=== PATIENT | male | born 1975 | race African-American/Black ===

== ENCOUNTER 2021-01-15 09:29 | Inpatient (IN) | payer OTHER ==
[2021-01-15] VITALS (8 sets, daily range): BP systolic 99–133; BP diastolic 73–81
[~2021-01-15] VITALS: Ht 185.4 cm; Wt 128.2 kg
[2021-01-15] MEDS ORDERED: IV NORMAL SALINE 1,000ML 1,000 ML IV ONE (10:15)
[2021-01-15 10:27] LABS: BASO # 0.1 x10^3/uL (0.0-0.2); BASO % 1 % (0-3); EOS % 1 % (0-3); HEMATOCRIT 40.9 % (39.0-53.0); LYMPH # 2.1 x10^3/uL (1.0-4.8); LYMPH % 25 % (24-48); MEAN CORPUSCULAR HEMOGLOBIN 30 pg (25-35); MEAN CORPUSCULAR HGB CONC 32 g/dL (31-37); MEAN CORPUSCULAR VOLUME 94 fL (79-100); MONO # 0.8 x10^3/uL (0.0-1.1); MONO % 10 % (0-9); NEUT # 5.4 x10^3uL (1.8-7.7); NEUT % 64 % (31-73); PLATELET COUNT 242 x10^3/uL (140-400); RED BLOOD COUNT 4.34 x10^6/uL (4.30-5.70); WHITE BLOOD COUNT 8.5 x10^3/uL (4.0-11.0)
--- NOTE | 2021-01-15 10:27 | EKG ---
[address] [address] Test Date: 2021-01-15 Test Time: 10:18:32 Pat Name: VALE GARCIA Department: Room: Gender: M Windows Vmware Engineer: LILIAN : 1975 Requested By: BAKARI CINTRON Order Number: [id number] Reading MD: Dean Tapia MD Measurements Intervals [place] Rate: 103 P: -90 MN: 96 QRS: 9 QRSD: 100 T: 16 QT: 270 QTc: 355 Interpretive Statements SINUS TACHYCARDIA Electronically Signed On 01-19-2021 21:47:11 TECHNOLOGY DEVELOPMENT INTERN by Dean Tapia MD
--- NOTE | 2021-01-15 10:29 | PHYS DOC ---
Past History Past Surgical History: No Surgical History Alcohol Use: Occasionally Adult General Chief Complaint Chief Complaint: NAUSEA/VOMITING/DIARRHEA HPI HPI Patient is a 45 year old male presenting with nausea and vomiting. He states he ate 3lbs of grapes last Wednesday, and began to feel nauseas the next day. He reports 4-5 episodes of clear emesis per day since. Haley beer and baking soda mixed with water help with his nauseousness, but he has been unable to eat since last Wednesday. He is a Type II diabetic, but has not taken his metformin or insulin in a week, and states his blood sugar readings have read "high". He denies any sick contacts, and is fully vaccinated against COVID-19. He denies chest pain, SOB, AKERS, diarrhea, fever, and chills. Review of Systems Review of Systems Fourteen body systems of review of systems have been reviewed. See HPI for pertinent positives and negative responses, other bowie all other systems are negative, non-pertinent or non-contributory Current Medications Current Medications Current Medications Medications (Trade) Dose Ordered Sig/Yvette Start Time Stop Time Status Last Admin Dose Admin Sodium Chloride 1,000 ml @ 1,000 mls/hr 1X ONCE 01/15/21 10:15 01/15/21 11:14 Allergies Allergies Allergies Coded Allergies Type Severity Reaction Last Updated Verified acetaminophen Allergy Unknown 01/15/21 Yes codeine Allergy Unknown 01/15/21 Yes oxycodone Allergy Unknown 01/15/21 Yes Physical Exam Physical Exam Constitutional: Well developed, well nourished, no acute distress, non-toxic appearance. HENT: Normocephalic, atraumatic, bilateral external ears normal, oropharynx dry , no oral exudates, nose normal. Eyes: PERRLA, EOMI, conjunctiva normal, no discharge. Neck: Normal range of motion, no tenderness, supple, no stridor. Cardiovascular: Heart rate tachycardic, sinus rhythm, no murmurs rubs or gallops Lungs & Thorax: Bilateral breath sounds clear to auscultation Abdomen: Bowel sounds normal, soft, no tenderness, no masses, no pulsatile masses. Nonsurgical abdomen, no peritoneal signs Skin: Warm, dry, no erythema, no rash. Back: No tenderness, no CVA tenderness. Extremities: No tenderness, no cyanosis, no clubbing, ROM intact, no edema. Neurologic: Alert and oriented X 3, grossly normal motor & sensory function, no focal deficits noted. Psychologic: Affect normal, judgement normal, mood normal. Current Patient Data Vital Signs Vital Signs Date Time Temp Pulse Resp B/P (MAP) Pulse Ox O2 Delivery O2 Flow Rate FiO2 01/15/21 09:49 97.9 119 16 133/69 (90) 100 Room Air Lab Results Laboratory Tests Test 01/15/21 10:02 01/15/21 11:09 01/15/21 11:11 01/15/21 13:06 White Blood Count 8.5 x10^3/uL Red Blood Count 4.34 x10^6/uL Hemoglobin 13.0 g/dL Hematocrit 40.9 % Mean Corpuscular Volume 94 fL Mean Corpuscular Hemoglobin 30 pg Mean Corpuscular Hemoglobin Concent 32 g/dL Red Cell Distribution Width 14.0 % Platelet Count 242 x10^3/uL Neutrophils (%) (Auto) 64 % Lymphocytes (%) (Auto) 25 % Monocytes (%) (Auto) 10 % Eosinophils (%) (Auto) 1 % Basophils (%) (Auto) 1 % Neutrophils # (Auto) 5.4 x10^3uL Lymphocytes # (Auto) 2.1 x10^3/uL Monocytes # (Auto) 0.8 x10^3/uL Eosinophils # (Auto) 0.0 x10^3/uL Basophils # (Auto) 0.1 x10^3/uL Bedside Venous pH 7.25 Bedside Venous pCO2 27 mmHg Bedside Venous pO2 41 mmHg Venous Blood HCO3 12 mmol/L POC Venous O2 Saturation (Jenny) 71 % Bedside FiO2 21 Sodium Level 130 mmol/L Potassium Level 3.7 mmol/L Chloride Level 92 mmol/L Carbon Dioxide Level 13 mmol/L Anion Gap 25 Blood Urea Nitrogen 12 mg/dL Creatinine 2.0 mg/dL Estimated GFR (Cockcroft-Gault) 43.9 Glucose Level 856 mg/dL Calcium Level 9.9 mg/dL Troponin I High Sensitivity 18 ng/L Acetone Level Sm pos SARS-CoV-2 Antigen (Rapid) Negative Urine Collection Type Unknown Urine Color Straw Urine Clarity Clear Urine pH 5.5 Urine Specific [place] <=1.005 Urine Protein Neg Urine Glucose (UA) >=1000 mg/dL Urine Ketones (Stick) 80 mg/dL Urine Blood Trace Urine Nitrite Neg Urine Bilirubin Small Urine Urobilinogen Dipstick 0.2 mg/dL Urine Leukocyte Esterase Neg Urine RBC Rare /HPF Urine WBC 0 /HPF Urine Squamous Epithelial Cells Occ /LPF Urine Bacteria 0 /HPF Glucose (Fingerstick) 242 mg/dL Test 01/15/21 15:21 Glucose (Fingerstick) 166 mg/dL Current Medications Medications (Trade) Dose Ordered Sig/Yvette Route PRN Reason Start Time Stop Time Status Last Admin Dose Admin Sodium Chloride 1,000 ml @ 1,000 mls/hr 1X ONCE IV 01/15/21 10:15 01/15/21 11:14 DC 01/15/21 10:23 Ondansetron HCl (Zofran) 4 mg 1X ONCE IVP 01/15/21 10:30 01/15/21 10:36 DC 01/15/21 10:30 Potassium Chloride/Sodium Chloride 1,000 ml @ 75 mls/hr 1X ONCE IV 01/15/21 11:30 01/16/21 00:49 01/15/21 11:30 Insulin Human Regular (HumuLIN R VIAL) 13 unit 1X ONCE IV 01/15/21 11:30 01/15/21 11:35 DC 01/15/21 11:51 Insulin Human Regular 100 unit/ Sodium Chloride 101 ml @ 0 mls/hr CONT PRN IV SEE I/O RECORD 01/15/21 11:30 01/15/21 11:36 DC Dextrose (Dextrose 50%-Water Syringe) 12.5 gm PRN Q15MIN PRN IV LOW BLOOD SUGAR 01/15/21 11:30 Insulin Human Regular 100 unit/ Sodium Chloride 101 ml @ 0 mls/hr CONT PRN IV SEE I/O RECORD 01/15/21 11:36 01/15/21 11:59 Dextrose/Sodium Chloride 1,000 ml @ 250 mls/hr 1X ONCE IV 01/15/21 13:15 01/15/21 17:14 EKG EKG EKG ordered and interpreted by myself at 1025 hrs. as sinus tachycardia at 103 bpm, unremarkable intervals, no axis deviation, no obvious ischemic findings, no STEMI Radiology/Procedures Radiology/Procedures [] Heart Score C/O Chest Pain: No HEART Score for Chest Pain: HEART Score for Chest Pain Response (Comments) Value History Slighlty/Non-Suspicious 0 ECG Normal 0 Age >45 - < 65 1 Risk Factors 1 or 2 Risk Factors 1 Troponin < Normal Limit 0 Total 2 Risk Factors: Risk Factors: DM, Current or recent (<one month) smoker, HTN, HLP, family history of CAD, obesity. Risk Scores: Risk Factors: DM, Current or recent (<one month) smoker, HTN, HLP, family history of CAD, obesity. Course & Med Decision Making Course & Med Decision Making Airway patent, breathing unlabored, IV access and vitals obtained concerning for tachycardia only HPI physical exam and comprehensive ER work-up concerning for DKA and a type II diabetic who has been nauseous and vomiting for 1 week without use of insulin. States this is his first time in DKA Appropriate fluid, insulin bolus and subsequent drip started to combat patient's DKA. Discussed need for admission for which she was amenable I contacted hospitalist at [facility] who accepted patient under his care. All questions and concerns patient had answered prior to hospital admission for continued inpatient medical management Dragon Disclaimer Dragon Disclaimer This electronic medical record was generated, in whole or in part, using a voice recognition dictation system. Departure Departure: Impression: Primary Impression: DKA (diabetic ketoacidosis) Additional Impression: Hyperglycemia due to type 2 diabetes mellitus Disposition: ADMITTED INPATIENT Admitting Physician: Chantelle Muniz Condition: STABLE Referrals: PCP,NO (PCP) Problem Qualifiers BAKARI CINTRON DO Jan 15, 2021 10:29
[2021-01-15] MEDS ORDERED: ONDANSETRON PF 4 MG/2 ML VIAL. IVP ONE (10:30)
[2021-01-15 10:42] LABS: CALCIUM 9.9 mg/dL (8.5-10.1); GFR 43.9; POTASSIUM 3.7 mmol/L (3.5-5.1)
[2021-01-15] MEDS ORDERED: INSULIN REGULAR 100 UNIT/ML 3ML VIAL. IV ONE (11:30)
[2021-01-15] MEDS ORDERED: INSULIN REGULAR VIAL 100 UNIT in IV NORMAL SALINE 100ML 100 ML IV PRN ×2 (11:30→11:36)
[2021-01-15] MEDS ORDERED: DEXTROSE 50% 25 GM / 50ML DISP.SYRIN. IV PRN (11:30)
[2021-01-15] MEDS ORDERED: POTASSIUM CL 20MEQ-0.45% NACL 1,000 ML IV ONE (11:30)
[2021-01-15 11:42] LABS: CLARITY,URINE CLEAR; COLOR,URINE STRAW; GLUCOSE,URINE >=1000 mg/dL (NEG)
[2021-01-15 11:43] LABS: BILIRUBIN,URINE SMALL (NEG); NITRITE,URINE NEG (NEG); UROBILINOGEN,URINE 0.2 mg/dL (0.2 mg/dL)
[2021-01-15 11:44] LABS: SQUAMOUS EPITHELIAL CELL,UR OCC /LPF
[2021-01-15 11:45] LABS: BACTERIA,URINE 0 /HPF (0-FEW); RBC,URINE RARE /HPF (0-2); WBC,URINE 0 /HPF (0-4)
[2021-01-15] MEDS ORDERED: IV DEXTROSE 5 %-0.45 % NACL 1,000 ML IV ONE (13:15)
[2021-01-15] MEDS ORDERED: CHLO50TA PO (16:16)
[2021-01-15] MEDS ORDERED: LISI40TA6 PO (16:20)
[2021-01-15] MEDS ORDERED: TRAZ150T49 PO (16:20)
[2021-01-15] MEDS ORDERED: ATOR10TA60 PO (16:22)
[2021-01-15] MEDS ORDERED: AMLO-187 PO (16:22)
[2021-01-15] MEDS ORDERED: POTA-121 PO (16:22)
--- NOTE | 2021-01-15 17:01 | HP ---
DATE OF SERVICE: 01/15/2021 ADMIT DATE: 01/15/2021 HISTORY OF PRESENT ILLNESS: The patient is a 45-year-old -Mexican male patient who presented to the Emergency Room with a complaint of recurrent bouts of nausea, vomiting. He stated that he ate 3 pounds of grapes last Wednesday, began to feel nauseous. The next day, he reports 4-5 episodes of clear emesis every day since then. Haley beer and baking soda mixed with water helped with his nauseousness, but he has been unable to eat since last Wednesday. He is type 2 diabetic, has not taken his metformin or insulin in a week. He states that his blood sugar readings have been read high. He denies any sick contacts. He is fully vaccinated against COVID-19. He denies chest pain, shortness of breath, headache, diarrhea, fever or chills. He was extensively investigated in the Emergency Room, was found to be in diabetic ketoacidosis. His blood sugar was extremely high at 856 with mild dilutional hyponatremia and high anion gap acidosis and acute kidney injury. He was treated with normal saline, was given regular insulin, started on insulin drip and IV fluid and was admitted to the ICU for further evaluation and treatment. PAST MEDICAL HISTORY: Significant for insulin requiring type 2 diabetes mellitus and hypertension. PAST SURGICAL HISTORY: Significant for resection of his right collarbone. FAMILY HISTORY: Unremarkable. SOCIAL HISTORY: He is single and does not smoke. Continue to drink alcohol, although much less than before. Does not use any drugs. ALLERGIES: HE IS ALLERGIC TO CODEINE, OXYCODONE, ACETAMINOPHEN. MEDICATIONS: He is currently on metformin 1000 mg twice a day. He is on atorvastatin calcium 10 mg at bedtime, amlodipine besylate 10 mg once a day, lisinopril 40 mg once a day, trazodone 150 mg at bedtime, potassium chloride 20 mEq once a day and chlorthalidone 50 mg daily. PHYSICAL EXAMINATION: GENERAL: On arrival to the Emergency Room, the patient was well-developed, well-nourished, in no acute distress. There is no pallor, jaundice, cyanosis, no lymphadenopathy, no thyromegaly, no jugular venous distention. No limb edema. VITAL SIGNS: His heart rate on arrival was 119, blood pressure is 133/69, temperature was 97.9, respiratory rate was 16 and oxygen saturation was 100% on room air. HEAD, EYES, EARS, NOSE, AND THROAT: Normocephalic, atraumatic. NECK: Supple. HEART: Showed normal first and second heart sounds. No gallop or murmur. CHEST: Showed central trachea, equal bilateral chest expansion, air entry, vesicular breath sounds. No crepitation or rhonchi. ABDOMEN: Distended, soft, nontender. NEUROLOGIC: He was grossly intact. LABORATORY DATA: Showed white cell count of 8500, hemoglobin 13, hematocrit 41, MCV 94 and platelet count 242,000 with normal manual differential. His chemistry showed a serum sodium 130, potassium 3.7, chloride 92, bicarbonate 13, anion gap of 25, BUN 12, creatinine 2, estimated GFR was 44 mL per minute. His blood sugar was 856. His calcium was 9.9 and troponin was 18 ng/L. ASSESSMENT AND PLAN: In summary, this is a 45-year-old -[place] patient was admitted with diabetic ketoacidosis, has multiple other medical problems including: A. Hypertension. B. Hyperlipidemia. The plan is to continue with insulin drip. Continue with IV fluids and potassium supplement as per DKA protocol. I will start him on clear liquid diet and hopefully by tomorrow, we can switch him back to his metformin and his longer acting insulin and if he is stable, he can be discharged home tomorrow. HARLAN DR: Louise TID: [id number]
[2021-01-15 17:19] LABS: CALCIUM 9.6 mg/dL (8.5-10.1); CREATININE 1.7 mg/dL (0.7-1.3); POTASSIUM 3.2 mmol/L (3.5-5.1)
[2021-01-15] MEDS: POTASSIUM CHLORIDE 20 MEQ TABLET.ER. PO SCH ×2 (19:18→21:19)
[2021-01-16] VITALS (18 sets, daily range): BP systolic 104–148; BP diastolic 67–99
[2021-01-16] MEDS ORDERED: POTASSIUM CL 20MEQ D5-0.45NACL 1,000 ML IV ONE (04:45)
[2021-01-16] MEDS: POTASSIUM CL 20MEQ D5-0.45NACL 1,000 ML IV SCH ×2 (04:50→12:30)
[2021-01-16 06:29] LABS: CREATININE 1.4 mg/dL (0.7-1.3); GFR 66.3; POTASSIUM 3.3 mmol/L (3.5-5.1)
[2021-01-16] MEDS ORDERED: DEXTROSE 50% 25 GM / 50ML DISP.SYRIN. IV PRN (14:45)
[2021-01-16 15:00] LABS: CALCIUM 8.4 mg/dL (8.5-10.1); CREATININE 1.2 mg/dL (0.7-1.3); GFR 79.2
[2021-01-16 15:09] LABS: POTASSIUM 2.8 mmol/L (3.5-5.1)
[2021-01-16] MEDS: POTASSIUM CHLORIDE 20 MEQ TABLET.ER. PO SCH ×3 (16:14→18:06)
[2021-01-16] MEDS: INSULIN LISPRO 300 UNITS/3 ML VIAL. SQ SCH (16:15)
[2021-01-16] MEDS ORDERED: POTASSIUM CHLORIDE 20 MEQ TABLET.ER. PO ONE ×2 (17:00→18:00)
[2021-01-16] MEDS ORDERED: INSULIN GLARGINE SYRINGE. SQ SCH (21:00)
--- NOTE | 2021-01-16 21:18 | PN ---
DATE: 01/16/2021 SUBJECTIVE: The patient is resting, slightly propped up in bed, in no apparent respiratory distress. He is feeling much better, has had no more nausea or vomiting. He is tolerating his liquid diet. His blood sugar is well controlled. LABORATORY DATA: His serum sodium this morning was 139, potassium 3.3, chloride 107, bicarbonate 15, and anion gap of 17. BUN of 11, creatinine was 1.4, down from 2. His calcium was 9. ASSESSMENT AND PLAN: Diabetic ketoacidosis, improving. His anion gap is closing. We will repeat his labs again this afternoon and if the gap is completely closed, we will discontinue the drip and start him on insulin sliding scale and put him back on his Lantus insulin. Other medical problems include hypertension, hyperlipidemia. Once he is back to normal, he is tolerating his diet and back on his metformin, sliding scale insulin and longer acting insulin. We will discharge him home tomorrow and we will arrange to make an appointment for him with one of the local primary care physician to continue for a better control of his diabetes and other medical problems. JOSIANE DR: Louise TID: [id number]
[2021-01-16] MEDS: metFORMIN XR 500 MG TAB.ER.24H PO SCH (21:21)
[2021-01-17 06:18] VITALS: BP 139/97
[2021-01-17 06:30] LABS: HEMATOCRIT 30.6 % (39.0-53.0); HEMOGLOBIN 10.4 g/dL (13.0-17.5); RED BLOOD COUNT 3.46 x10^6/uL (4.30-5.70); RED CELL DISTRIBUTION WIDTH 13.9 % (11.5-14.5)
[2021-01-17 06:38] LABS: ALBUMIN 2.9 g/dL (3.4-5.0); CALCIUM 8.4 mg/dL (8.5-10.1); CREATININE 1.1 mg/dL (0.7-1.3); GFR 87.6; POTASSIUM 3.1 mmol/L (3.5-5.1); TOTAL BILIRUBIN 0.3 mg/dL (0.2-1.0); TOTAL PROTEIN 5.7 g/dL (6.4-8.2)
[2021-01-17] MEDS: INSULIN LISPRO 300 UNITS/3 ML VIAL. SQ SCH ×2 (08:14→12:46)
[2021-01-17] MEDS: metFORMIN XR 500 MG TAB.ER.24H PO SCH (08:15)
[2021-01-17 11:17] VITALS: BP 145/99
[2021-01-17] MEDS ORDERED: traZODone 150 MG TABLET. PO PRN (12:30)
[2021-01-17] MEDS ORDERED: POTASSIUM CHLORIDE 20 MEQ TABLET.ER. PO ONE ×2 (12:30→12:45)
[2021-01-17] MEDS ORDERED: INSU100C4 SQ (12:55)
[2021-01-17] MEDS ORDERED: POTA-121 PO (12:55)
[2021-01-17] MEDS ORDERED: METF100010 PO (12:55)
[2021-01-17] MEDS ORDERED: ATORVASTATIN CALCIUM 10 MG TABLET. PO SCH (21:00)
[2021-01-18] MEDS ORDERED: POTASSIUM CHLORIDE 20 MEQ TABLET.ER. PO SCH (09:00)
[2021-01-18] MEDS ORDERED: amLODIPine BESYLATE 10 MG TABLET PO SCH (09:00)
[2021-01-18] MEDS ORDERED: LISINOPRIL 20 MG TABLET PO SCH (09:00)
[2021-01-18] MEDS ORDERED: CHLORTHALIDONE 25 MG TABLET PO SCH (09:00)
== END 2021-01-17 13:37 | disposition home or self-care (01) | DRG 637 ==
LOC: ER 09:29 → ICU 13:00 → ER 14:57 → 1 SOUTH 01-17 03:20 → ICU 01-17 05:39 → 1 SOUTH 01-17 06:23
PROVIDERS: ADMIT Internal Medicine; ATTEND Internal Medicine
DX: E11.10 Type 2 diabetes mellitus with ketoacidosis without coma (principal); N17.0 Acute kidney failure with tubular necrosis; E87.1 Hypo-osmolality and hyponatremia; E78.5 Hyperlipidemia, unspecified; I10 Essential (primary) hypertension; Z79.4 Long term (current) use of insulin; Z20.822 Contact with and (suspected) exposure to COVID-19
CPT/HCPCS: 36415; 80048; 80053; 81001; 82010; 82803; 82947; 84484; 85025; 85027; 87426; 93005; 96361; 96365; 96366; 96375; 96376; J1815; J2405; U0003; 99285-25; J7030